=== PATIENT | male | born 1950 | race Caucasian/White ===

== ENCOUNTER 2018-03-10 03:48 | Emergency (ER) | payer OTHER ==
[~2018-03-10] VITALS: Ht 170.2 cm; Wt 72.6 kg
--- NOTE | ~2018-03-10 | EKG ---
[place] [address] [facility] [place] [address] ELECTROCARDIOGRAM REPORT Name: CHUCKY PAYTNO Room #: [facility] DUNG Verduzco#: [id number] Admission: 03/10/18 Attend Phys: Discharge: 03/10/18 Date of : 46 Report #: [id number] THIS REPORT FOR: //name// [facility] ED Test Date: 2018-03-10 Test Time: 04:24:52 Pat Name: CHUCKY PAYTON Department: Room: Gender: Chaperone: de : 1950 Requested By: Stanley Campbell Order Number: [id number] MD: Navin Snider Measurements Intervals [place] Rate: 58 P: 42 ND: 147 QRS: -7 QRSD: 94 T: 8 QT: 452 QTc: 445 Interpretive Statements Sinus bradycardia Otherwise no significant abnormality No previous ECG available for comparison Electronically Signed On 03-10-2018 8:12:06 COMMERCIAL ESTIMATOR by Navin Snider [email or web address] <ELECTRONICALLY SIGNED> By: Navin Snider MD, [facility] 03/10/18 0812 0424 0424 Navin Snider MD, FACC /EPI
[2018-03-10 04:21] LABS: URINE BILIRUBIN NEGATIVE (Negative); URINE BLOOD NEGATIVE (Negative); URINE CLARITY CLEAR; URINE COLOR YELLOW; URINE GLUCOSE-RANDOM* NEGATIVE (Negative); URINE KETONES NEGATIVE (Negative); URINE NITRITE-REFLEX NEGATIVE (Negative); URINE PROTEIN (DIPSTICK) NEGATIVE (Negative); URINE UROBILINOGEN 0.2 E.U./dl (0.2-1.0)
[2018-03-10 04:27] LABS: URINE LEUKOCYTES-REFLEX TRACE (Negative)
[2018-03-10 04:30] LABS: AMP/METHAMP Negative (Negative); BARBITURATES Negative (Negative); BENZODIAZEPINES Negative (Negative); COCAINE Negative (Negative); METHADONE Negative (Negative); OPIATES Negative (Negative); PCP Negative (Negative)
[2018-03-10 04:31] LABS: ABSOLUTE NEUTROPHILS 7.6 thou/uL (1.4-8.2); BASOPHILS 0.8 % (0.0-2.0); EOSINOPHILS 5.4 % (0.0-3.0); HEMATOCRIT 40.4 % (42.0-52.0); HEMOGLOBIN 13.5 gm/dL (14.0-18.0); LYMPHOCYTES 15.2 % (24.0-44.0); MCHC 33.6 g/dL (28.0-37.0); MCV 89.3 fL (80.0-100.0); MONOCYTES 6.3 % (1.0-8.0); PLATELET COUNT 273 thou/uL (150-400); POLYS 72.3 % (36.0-66.0); RBC 4.52 mil/uL (4.50-6.00); RDW 15.2 % (10.5-14.5); WBC 10.5 thou/uL (4.0-11.0)
[2018-03-10 04:34] LABS: ANION GAP 11 mmol/L (7-16); BUN 15 mg/dL (7-18); CALCIUM 9.1 mg/dL (8.5-10.1); CHLORIDE 103 mmol/L (98-107); CO2 25 mmol/L (21-32); CREATININE 1.1 mg/dL (0.7-1.3); GLUCOSE 132 mg/dL (74-106); POTASSIUM 3.8 mmol/L (3.5-5.1); SODIUM 139 mmol/L (136-145)
[2018-03-10 04:41] LABS: CASTS None Seen /LPF (None Seen); MUCUS None Seen strn/LPF (None Seen); SQUAMOUS None Seen /LPF (0-3)
[2018-03-10 04:42] LABS: BACTERIA-REFLEX 1-9 Few /HPF (None Seen); CRYSTALS None Seen /LPF (None Seen); URINE RBC None Seen /HPF (0-2); URINE WBC-REFLEX None Seen /HPF (0-5)
[2018-03-10 04:43] LABS: ALBUMIN 3.7 g/dL (3.4-5.0); SALICYLATE < 2.8 mg/dL (2.8-20.0); SGOT 15 U/L (15-37); SGPT 29 U/L (30-65); TOTAL BILIRUBIN 0.3 mg/dL (<0.1-1.0); TOTAL PROTEIN 6.7 g/dL (6.4-8.2); TROPONIN-I <0.06 ng/mL (<0.06)
[2018-03-11] MEDS ORDERED: ESKALITH300 MG PO (12:08)
[2018-03-11] MEDS ORDERED: ATORVASTATIN CA40 MG PO (12:08)
[2018-03-11] MEDS ORDERED: OMEPRAZOLE40 MG PO (12:08)
[2018-03-11] MEDS ORDERED: LAMOTRIGINE150 MG PO (12:24)
[2018-03-11] MEDS ORDERED: TRAZODONE HCL100 MG PO (12:24)
[2018-03-11] MEDS ORDERED: SERTRALINE HCL100 MG PO (12:25)
[2018-03-11] MEDS ORDERED: AUSTEDO12 MG PO (12:26)
[2018-03-11] MEDS ORDERED: ASPIR 8181 MG PO (12:27)
== END 2018-03-10 06:30 | disposition home or self-care (01) ==
LOC: ER 03:48
PROVIDERS: Emergency Medicine
DX: R44.0 Auditory hallucinations (principal); F31.9 Bipolar disorder, unspecified

== ENCOUNTER 2018-03-11 11:35 | Emergency (ER) | payer OTHER ==
[~2018-03-11] VITALS: Ht 170.2 cm; Wt 70.3 kg
[2018-03-11 11:59] LABS: URINE BILIRUBIN NEGATIVE (Negative); URINE BLOOD NEGATIVE (Negative); URINE CLARITY CLEAR; URINE COLOR YELLOW; URINE GLUCOSE-RANDOM* NEGATIVE (Negative); URINE KETONES NEGATIVE (Negative); URINE NITRITE-REFLEX NEGATIVE (Negative); URINE PROTEIN (DIPSTICK) NEGATIVE (Negative); URINE SPECIFIC GRAVITY 1.015 (1.005-1.035); URINE UROBILINOGEN 0.2 E.U./dl (0.2-1.0)
[2018-03-11 12:00] LABS: URINE LEUKOCYTES-REFLEX 1+ (Negative)
[2018-03-11] MEDS ORDERED: ESKALITH300 MG PO (12:08)
[2018-03-11] MEDS ORDERED: OMEPRAZOLE40 MG PO (12:08)
[2018-03-11] MEDS ORDERED: ATORVASTATIN CA40 MG PO (12:08)
[2018-03-11 12:15] LABS: BACTERIA-REFLEX 1-9 Few /HPF (None Seen); CASTS None Seen /LPF (None Seen); CRYSTALS None Seen /LPF (None Seen); SQUAMOUS 0-3 Few /LPF (0-3); URINE RBC 0-2 Rare /HPF (0-2); URINE WBC-REFLEX 6-15 Few /HPF (0-5)
[2018-03-11] MEDS ORDERED: TRAZODONE HCL100 MG PO (12:24)
[2018-03-11] MEDS ORDERED: LAMOTRIGINE150 MG PO (12:24)
[2018-03-11 12:25] LABS: ABSOLUTE NEUTROPHILS 6.2 thou/uL (1.4-8.2); BASOPHILS 0.7 % (0.0-2.0); EOSINOPHILS 4.2 % (0.0-3.0); HEMATOCRIT 45.4 % (42.0-52.0); LYMPHOCYTES 16.5 % (24.0-44.0); MCH 29.9 pg (26.0-34.0); MCHC 33.1 g/dL (28.0-37.0); MCV 90.4 fL (80.0-100.0); MONOCYTES 5.4 % (1.0-8.0); PLATELET COUNT 297 thou/uL (150-400); POLYS 73.2 % (36.0-66.0); RBC 5.03 mil/uL (4.50-6.00); WBC 8.4 thou/uL (4.0-11.0)
[2018-03-11] MEDS ORDERED: SERTRALINE HCL100 MG PO (12:25)
[2018-03-11] MEDS ORDERED: AUSTEDO12 MG PO (12:26)
[2018-03-11] MEDS ORDERED: ASPIR 8181 MG PO (12:27)
[2018-03-11 12:34] LABS: CALCIUM 9.8 mg/dL (8.5-10.1); CREATININE 1.2 mg/dL (0.7-1.3)
[2018-03-11 12:39] LABS: ALBUMIN 4.1 g/dL (3.4-5.0); TOTAL BILIRUBIN 0.6 mg/dL (<0.1-1.0); TOTAL PROTEIN 7.3 g/dL (6.4-8.2)
== END 2018-03-12 12:01 ==
LOC: ER 11:35
PROVIDERS: Nurse Practitioner Family
DX: R45.851 Suicidal ideations (principal); F31.9 Bipolar disorder, unspecified; Z87.891 Personal history of nicotine dependence; Z79.899 Other long term (current) drug therapy

== ENCOUNTER 2018-04-19 01:54 | Emergency (ER) | payer OTHER ==
[~2018-04-19] VITALS: Ht 170.2 cm; Wt 70.3 kg
--- NOTE | ~2018-04-19 | EKG ---
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[facility] 1950 Requested By: Eric Hart Order Number: [id number] MD: Navin Snider Measurements Intervals [place] Rate: 60 P: -2 RI: 138 QRS: 0 QRSD: 91 T: 22 QT: 401 QTc: 401 Interpretive Statements Sinus rhythm Normal tracing Compared to ECG 03/10/2018 04:24:52 Sinus bradycardia no longer present Electronically Signed On 04-19-2018 8:27:25 CLAM SHUCKING MACHINE TENDER by Navin Snider [email or web address] <ELECTRONICALLY SIGNED> By: Navin Snider MD, [facility] 04/19/18 0827 0249 0249 Navin Snider MD, FACC /EPI
[~2018-04-19 01:54] MED LIST: ASPIR 8181 MG PO; ATORVASTATIN CA40 MG PO; AUSTEDO12 MG PO; ESKALITH300 MG PO; LAMOTRIGINE150 MG PO; OMEPRAZOLE40 MG PO; SERTRALINE HCL100 MG PO; TRAZODONE HCL100 MG PO
[2018-04-19] MEDS ORDERED: ATIVAN0.5 MG PO (02:15)
[2018-04-19 02:33] LABS: ABSOLUTE NEUTROPHILS 8.7 thou/uL (1.4-8.2); BASOPHILS 0.3 % (0.0-2.0); EOSINOPHILS 3.3 % (0.0-3.0); HEMATOCRIT 41.4 % (42.0-52.0); HEMOGLOBIN 13.7 gm/dL (14.0-18.0); MCH 29.7 pg (26.0-34.0); MCHC 33.1 g/dL (28.0-37.0); MCV 89.8 fL (80.0-100.0); MONOCYTES 6.7 % (1.0-8.0); PLATELET COUNT 262 thou/uL (150-400); POLYS 76.7 % (36.0-66.0); RBC 4.61 mil/uL (4.50-6.00); WBC 11.4 thou/uL (4.0-11.0)
[2018-04-19 02:40] LABS: ANION GAP 7 mmol/L (7-16); BUN 13 mg/dL (7-18); CALCIUM 8.8 mg/dL (8.5-10.1); CHLORIDE 104 mmol/L (98-107); CO2 28 mmol/L (21-32); CREATININE 1.1 mg/dL (0.7-1.3); GLUCOSE 108 mg/dL (74-106); POTASSIUM 3.2 mmol/L (3.5-5.1); SODIUM 139 mmol/L (136-145)
[2018-04-19 02:50] LABS: ALBUMIN 3.8 g/dL (3.4-5.0); SGOT 17 U/L (15-37); SGPT 24 U/L (30-65); TOTAL BILIRUBIN 0.4 mg/dL (<0.1-1.0); TOTAL PROTEIN 6.7 g/dL (6.4-8.2); TROPONIN-I <0.06 ng/mL (<0.06)
[2018-04-19 04:35] VITALS: BP 115/65
== END 2018-04-19 04:38 | disposition home or self-care (01) ==
LOC: ER 01:54
PROVIDERS: Emergency Medicine
DX: R06.00 Dyspnea, unspecified (principal); R06.02 Shortness of breath; F31.9 Bipolar disorder, unspecified; Z87.891 Personal history of nicotine dependence

== ENCOUNTER 2018-04-23 10:15 | Emergency (ER) | payer OTHER ==
[~2018-04-23] VITALS: Ht 170.2 cm; Wt 70.3 kg
--- NOTE | ~2018-04-23 | EKG ---
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
[~2018-04-23 10:15] MED LIST changes: +ATIVAN0.5 MG PO
[2018-04-23 11:03] LABS: ABSOLUTE NEUTROPHILS 9.8 thou/uL (1.4-8.2); BASOPHILS 0.4 % (0.0-2.0); EOSINOPHILS 3.4 % (0.0-3.0); HEMATOCRIT 39.9 % (42.0-52.0); HEMOGLOBIN 13.4 gm/dL (14.0-18.0); LYMPHOCYTES 9.1 % (24.0-44.0); MCH 30.1 pg (26.0-34.0); MCHC 33.5 g/dL (28.0-37.0); MCV 89.9 fL (80.0-100.0); MONOCYTES 5.5 % (1.0-8.0); PLATELET COUNT 289 thou/uL (150-400); POLYS 81.6 % (36.0-66.0); RBC 4.44 mil/uL (4.50-6.00); RDW 13.9 % (10.5-14.5)
[2018-04-23 11:10] LABS: ANION GAP 11 mmol/L (7-16); BUN 15 mg/dL (7-18); CALCIUM 9.2 mg/dL (8.5-10.1); CHLORIDE 105 mmol/L (98-107); CO2 24 mmol/L (21-32); CREATININE 1.2 mg/dL (0.7-1.3); GLUCOSE 93 mg/dL (74-106); POTASSIUM 4.3 mmol/L (3.5-5.1); SODIUM 140 mmol/L (136-145)
[2018-04-23 11:19] LABS: ALBUMIN 3.6 g/dL (3.4-5.0); SGOT 20 U/L (15-37); SGPT 28 U/L (30-65); TOTAL BILIRUBIN 0.7 mg/dL (<0.1-1.0); TOTAL PROTEIN 6.5 g/dL (6.4-8.2); TROPONIN-I <0.06 ng/mL (<0.06)
[2018-04-23] MEDS ORDERED: AZITHROMYCIN 2250 MG PO (11:48)
[2018-04-23] MEDS ORDERED: TESSALON PERLE100 MG PO (11:48)
[2018-04-23 12:14] VITALS: BP 120/63
== END 2018-04-23 12:16 | disposition home or self-care (01) ==
LOC: ER 10:15
PROVIDERS: Student in an Organized Health Care Education/Training Program
DX: J18.8 Other pneumonia, unspecified organism (principal); F31.9 Bipolar disorder, unspecified; Z87.891 Personal history of nicotine dependence

== ENCOUNTER 2018-05-03 21:42 | Emergency (ER) | payer OTHER ==
[~2018-05-03] VITALS: Ht 170.2 cm; Wt 65.8 kg
[~2018-05-03 21:42] MED LIST changes: +AZITHROMYCIN 2250 MG PO; +TESSALON PERLE100 MG PO
[2018-05-03] MEDS ORDERED: CONCERTA18 MG PO (22:20)
[2018-05-03 23:15] VITALS: BP 140/62
--- NOTE | 2018-05-04 08:11 | EKG ---
[place] [address] [facility] [place] [address] ELECTROCARDIOGRAM REPORT Name: DON PAYTONLebron Contreras Room #: DEP Luba#: [id number] Admission: 05/03/18 Attend Phys: Discharge: 05/03/18 Date of : 46 Report #: [id number] THIS REPORT FOR: //name// 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: [facility] : 1950 Requested By: Song Sotomayor Order Number: [id number] MD: Navin Snider Measurements Intervals [place] Rate: 66 P: 65 [place]: 132 QRS: 34 QRSD: 90 T: 57 QT: 413 QTc: 433 Interpretive Statements Sinus rhythm No significant abnormality Compared to ECG 04/23/2018 11:35:43 No significant changes Electronically Signed On 05-04-2018 8:10:47 ONLINE MARKETING MANAGER by Navin Snider [email or web address] <ELECTRONICALLY SIGNED> By: Navin Snider MD, [facility] 05/04/18 0810 2148 2148 Navin Snider MD, FACC /EPI
== END 2018-05-03 23:16 | disposition home or self-care (01) ==
LOC: ER 21:42
DX: R06.00 Dyspnea, unspecified (principal); F31.9 Bipolar disorder, unspecified; F41.9 Anxiety disorder, unspecified; F90.9 Attention-deficit hyperactivity disorder, unspecified type; Z87.891 Personal history of nicotine dependence

== ENCOUNTER 2018-06-17 20:58 | Emergency (ER) | payer OTHER ==
[~2018-06-17] VITALS: Ht 170.2 cm; Wt 66.7 kg
[~2018-06-17 20:58] MED LIST changes: +CONCERTA18 MG PO
[2018-06-17 21:14] LABS: ABSOLUTE NEUTROPHILS 7.2 thou/uL (1.4-8.2); BASOPHILS 0.9 % (0.0-2.0); EOSINOPHILS 3.6 % (0.0-3.0); HEMATOCRIT 41.7 % (42.0-52.0); HEMOGLOBIN 14.6 gm/dL (14.0-18.0); LYMPHOCYTES 18.6 % (24.0-44.0); MCH 30.4 pg (26.0-34.0); MCHC 34.9 g/dL (28.0-37.0); MCV 87.2 fL (80.0-100.0); MONOCYTES 5.6 % (1.0-8.0); PLATELET COUNT 255 thou/uL (150-400); POLYS 71.3 % (36.0-66.0); RBC 4.79 mil/uL (4.50-6.00)
[2018-06-17 21:21] LABS: ANION GAP 8 mmol/L (7-16); BUN 19 mg/dL (7-18); CALCIUM 8.9 mg/dL (8.5-10.1); CHLORIDE 105 mmol/L (98-107); CO2 26 mmol/L (21-32); GLUCOSE 103 mg/dL (74-106); POTASSIUM 3.7 mmol/L (3.5-5.1); SODIUM 139 mmol/L (136-145)
[2018-06-17 21:30] LABS: ALBUMIN 3.8 g/dL (3.4-5.0); MAGNESIUM 1.6 mg/dL (1.8-2.4); SGPT 29 U/L (30-65); TOTAL BILIRUBIN 0.4 mg/dL (<0.1-1.0); TOTAL PROTEIN 6.4 g/dL (6.4-8.2); TROPONIN-I <0.06 ng/mL (<0.06)
[2018-06-17 21:44] LABS: SGOT 23 U/L (15-37)
[2018-06-17 22:06] VITALS: BP 92/76
--- NOTE | 2018-06-19 21:55 | EKG ---
[place] [address] [address] [place] [address] ELECTROCARDIOGRAM REPORT Name: CHUCKY PAYTON Room #: [facility] DUNG Verduzoc#: [id number] Admission: 06/17/18 Attend Phys: Discharge: 06/17/18 Date of : 46 Report #: [id number] THIS REPORT FOR: //name// [facility] ED Test Date: 2018-06-17 Test Time: 20:58:30 Pat Name: CHUCKY PAYTON Department: Room: Gender: Thread Checker: : 1950 Requested By: Eron Fowler Order Number: [id number] MD: Benito Malave Measurements Intervals [place] Rate: 57 P: 27 [place]: 125 QRS: 11 QRSD: 90 T: 32 QT: 409 QTc: 399 Interpretive Statements Sinus rhythm Compared to ECG 05/03/2018 21:48:46 No significant changes Electronically Signed On 06-19-2018 21:55:18 INTEGRATED CIRCUIT FABRICATOR by Benito Malave [email or web address] <ELECTRONICALLY SIGNED> By: Benito Malave MD 06/19/18 2155 57 57 MD KAI Carter
== END 2018-06-17 22:09 | disposition home or self-care (01) ==
LOC: ER 20:58
PROVIDERS: Emergency Medicine
DX: R41.3 Other amnesia (principal); R41.82 Altered mental status, unspecified; F31.9 Bipolar disorder, unspecified; F41.9 Anxiety disorder, unspecified; F90.9 Attention-deficit hyperactivity disorder, unspecified type; Z87.891 Personal history of nicotine dependence